=== PATIENT | male | born 1965 | race Caucasian/White ===

== ENCOUNTER → 2017-04-11 | Outpatient (CLI) | payer MEDICARE | LOC: MHCPAIN 10:41 | DX: G89.29 Other chronic pain (principal); M96.1 Postlaminectomy syndrome, not elsewhere classified; S24.109A Unspecified injury at unspecified level of thoracic spinal cord, initial encounter; R25.2 Cramp and spasm | CPT/HCPCS: G0463 ==

== ENCOUNTER 2019-03-12 13:08 | Outpatient (RCR) | payer MEDICARE | END 2019-03-29 16:52 | disposition home or self-care (01) | LOC: MKS.ESL.OT 13:08 | DX: G82.20 Paraplegia, unspecified (principal); G95.9 Disease of spinal cord, unspecified ==

== ENCOUNTER → 2019-04-13 | Outpatient (CLI) | payer MEDICARE | LOC: COL.RAD 14:00 | DX: N31.2 Flaccid neuropathic bladder, not elsewhere classified (principal); N13.30 Unspecified hydronephrosis ==

== ENCOUNTER 2020-02-28 17:44 | Emergency (ER) | payer MEDICARE ==
[~2020-02-28] VITALS: Ht 182.9 cm; Wt 63.6 kg
[~2020-02-28 17:44] MED LIST: AFRIN 15 ML15 ML NS; DULCOLAX STOOL100 MG PO; REGLAN 10MG/11 MG/ML PEG; REGLAN 10MG/11 MG/ML PO; SANTYL30 TP; TYLENOL 325MG325 MG PO; VALIUM 5MG T5 MG/TAB PO; ZILRETTA32 MG; ZOFRAN 4MG T4 MG/TAB PO; ZOLOFT 100MG100 MG PO
[2020-02-28 18:43] LABS: HEMATOCRIT 39.7 % (42.0-52.0); HEMOGLOBIN 12.3 g/dl (13.5-18.0); MEAN CELL VOLUME 84 fl (80.0-100.0); MEAN CORPUSCULAR HEMOGLOBIN 26 pg (27.0-31.0); MEAN CORPUSCULAR HGB CONC 31 g/dl (33.0-37.0); MEAN PLATELET VOLUME 10.3 fl (7.4-10.4); PLATELET COUNT 899 K/mm3 (130-400); RED BLOOD COUNT 4.74 M/mm3 (4.20-5.60); REDCELL DISTRIBUTION WIDTH-CV 14.8 % (11.5-14.5)
[2020-02-28 18:51] LABS: ALBUMIN 4.2 gm/dL (3.5-5.0); ALKALINE PHOSPHATASE 125 U/L (50-136); ANION GAP 16 mmol/L (7-16); AST,SGOT 20 U/L (15-37); BILIRUBIN,TOTAL 0.7 mg/dL (0.0-1.0); BLOOD UREA NITROGEN 35 mg/dL (9-20); C-REACTIVE PROTEIN 8.4 mg/dL (0.0-0.9); CALCIUM 10.7 mg/dL (8.4-10.2); CARBON DIOXIDE 25 mmol/L (22-30); CHLORIDE 97 mmol/L (98-107); CREATININE, serum 0.87 (0.66-1.25); GLUCOSE 277 mg/dL (74-106); LIPASE 19 U/L (23-300); SODIUM 138 mmol/L (137-145); TOTAL PROTEIN 9.2 gm/dL (6.4-8.2)
[2020-02-28 18:55] LABS: ALANINE AMINOTRANSFERASE 23 U/L (4-49)
[2020-02-28 19:10] LABS: TROPONIN-I < 0.012 ng/mL (0.000-0.035)
[2020-02-28 19:39] LABS: COLLECTION METHOD CATHETER
[2020-02-28 19:47] LABS: BAND 5 % (0-10); LYMPHOCYTE 2 % (20.0-51.0); METAMYELOCYTE 0 % (0-0); NEUTROPHILS 87 % (42.0-75.2); PLATELET ESTIMATE INCREASED (NORMAL)
[2020-02-28 19:48] LABS: HYPOCHROMIA 2+
[2020-02-28 19:56] LABS: PH 6 (5-8); SQUAMOUS EPITHELIAL None Seen /hpf; URINE APPEARANCE Clear; URINE BACTERIA None Seen /hpf; URINE BILIRUBIN Negative (NEGATIVE); URINE BLOOD 1+ (NEGATIVE); URINE COLOR Yellow; URINE GLUCOSE Negative (NEGATIVE); URINE KETONE Negative (NEGATIVE); URINE LEUKOCYTE ESTERASE Trace (NEGATIVE); URINE NITRATE Negative (NEGATIVE); URINE PROTEIN(semi-quant) 1+ (NEGATIVE); URINE RBC >50 /hpf; URINE UROBILINOGEN Negative (NEGATIVE)
[2020-02-28 22:34] VITALS: BP 119/81; PULSE 156; TEMP 98.1
== END 2020-02-28 22:32 | disposition short-term general hospital (02) ==
LOC: COL.ER 17:44
PROVIDERS: Emergency Medicine
DX: J18.9 Pneumonia, unspecified organism (principal); A41.9 Sepsis, unspecified organism; R10.0 Acute abdomen
CPT/HCPCS: J0692; J1170; J2405; J3010; J7030; Q9967

== ENCOUNTER 2022-01-22 17:42 | Inpatient (IN) | payer MEDICARE ==
[~2022-01-22] VITALS: Ht 182.9 cm; Wt 64.1 kg
[2022-01-22 18:18] LABS: BASO % 0.3 % (0.0-2.0); EOS # 0.5 K/mm3 (0.0-0.7); EOS % 4.4 % (0.0-4.0); GRAN # 8.6 K/mm3 (1.4-6.5); GRAN % 74.2 % (42.2-75.2); LYMPH # 1.3 K/mm3 (1.2-3.4); LYMPH % 11.2 % (20.0-51.0); MEAN CELL VOLUME 60 fl (80.0-100.0); MEAN CORPUSCULAR HGB CONC 27 g/dl (33.0-37.0); MEAN PLATELET VOLUME 10.3 fl (7.4-10.4); MONO # 1.1 K/mm3 (0.1-0.6); MONO % 9.3 % (1.7-9.3); PLATELET COUNT 822 K/mm3 (130-400); RED BLOOD COUNT 3.57 M/mm3 (4.20-5.60); REDCELL DISTRIBUTION WIDTH-CV 21.3 % (11.5-14.5)
[2022-01-22 18:26] LABS: HEMATOCRIT 21.5 % (42.0-52.0); MEAN CORPUSCULAR HEMOGLOBIN 16 pg (27-31)
[2022-01-22 18:27] LABS: HEMOGLOBIN 5.7 g/dl (13.5-18.0)
[2022-01-22 18:44] LABS: BILIRUBIN,TOTAL 0.6 mg/dL (0.2-1.2); CALCIUM 8.7 mg/dL (8.4-10.2); CREATININE, serum 0.74 mg/dL (0.72-1.25); POTASSIUM 3.5 mmol/L (3.5-4.5); TOTAL PROTEIN 7.1 gm/dL (6.2-8.1)
[2022-01-22 18:59] LABS: COLLECTION METHOD IN
[2022-01-22 19:17] LABS: PH 6 (5-8); SQUAMOUS EPITHELIAL None Seen /hpf (0-10); URINE APPEARANCE Cloudy (CLEAR/HAZY); URINE BACTERIA Rare /hpf (NONE SEEN); URINE BILIRUBIN Negative (NEGATIVE); URINE BLOOD 1+ (NEGATIVE); URINE COLOR Yellow (YELLOW); URINE GLUCOSE Negative (NEGATIVE); URINE KETONE Negative (NEGATIVE); URINE LEUKOCYTE ESTERASE 3+ (NEGATIVE); URINE NITRATE Negative (NEGATIVE); URINE PROTEIN(semi-quant) 1+ (NEGATIVE); URINE UROBILINOGEN Negative (NEGATIVE)
[2022-01-22 21:30] VITALS: BP 128/67; PULSE 67; TEMP 98.9
[2022-01-22] MEDS ORDERED: PROTONIX 40MG T40 MG PO (21:41)
[2022-01-22] MEDS ORDERED: PEPCID40 MG PO (21:41)
[2022-01-22] MEDS ORDERED: ULTRAM 50MG TAB50 MG (21:53)
[2022-01-22] MEDS ORDERED: ZOFRAN 4MG T4 MG/TAB (21:54)
[2022-01-22 21:59] VITALS: BP 136/70; PULSE 72; TEMP 98.7
[2022-01-22 22:46] VITALS: BP 129/66; PULSE 72; TEMP 98.8
[2022-01-22 23:15] VITALS: BP 121/66; PULSE 92; TEMP 99
[2022-01-22 23:46] VITALS: BP 116/66; PULSE 105; TEMP 98.9
[2022-01-23] VITALS (20 sets, daily range): BP systolic 90–118; BP diastolic 49–68; PULSE 56–97; TEMP 97.8–98.9
--- NOTE | 2022-01-23 01:39 | NUR ---
Patient arrived from ER to medical unit at approximately 2315. Patient had blood running, straight tubing from ER. Completed blood at approximately 0015. Order placed to recheck H&H. Patient is alert and oriented, and able to make needs known. Denies pain and discomfort. Peripheral INT to left AC. 1 L fluids given after transfusion completed per orders. Denies SOB and dyspnea. LS CTA. HRR. Telemetry in place. BSA. Colostomy to LLQ. Chronic indwelling catheter in place, with cloudy yellow urine. Changed leg bag to urinary drainage bag. No edema. Called CHRIS Valentine as requested to look at ulcers-one to right hip area with drainage, wound culture obtained. One to left hip area, not open, no drainage. One to left buttock, with drainage, wound culture obtained. New mepilex dressings placed to area. Patient has scarring to bottom from old ulcers. Contractures to BLE and hips. Paraplegic. Waffle overlay mattress applied to bed. Patient voices no questions, needs, or concerns at this time. In bed with call light within reach.
[2022-01-23 01:46] LABS: HEMATOCRIT 22.8 % (42.0-52.0)
[2022-01-23 01:47] LABS: HEMOGLOBIN 6.3 g/dl (13.5-18.0)
--- NOTE | 2022-01-23 05:36 | NUR ---
Patient receiving 2nd unit of blood at this time. BP had been low, 90s/50s. Updated CHRIS Valentine. Order to start IV fluids when blood is complete. Patient denies pain and discomfort. Voices no questions, needs, or concerns at this time. In bed with call light within reach.
--- NOTE | 2022-01-23 06:22 | NUR ---
Patient completed 2nd unit of blood. Order placed to recheck around 0700, and refuse laborer notified. IV fluids started per orders, and given IV Protonix per orders. Dr. Louie notified of consult. Telephone order to put in order set for EGD at 1130. Orders placed. Called and notified Recovery Rn who will get it put on schedule.
[2022-01-23 07:23] LABS: BASO # 0.1 K/mm3 (0.0-0.2); BASO % 0.6 % (0.0-2.0); EOS # 0.7 K/mm3 (0.0-0.7); EOS % 7.5 % (0.0-4.0); GRAN % 70.8 % (42.2-75.2); LYMPH % 10.4 % (20.0-51.0); MEAN CORPUSCULAR HGB CONC 29 g/dl (33.0-37.0); MONO % 9.9 % (1.7-9.3); RED BLOOD COUNT 3.62 M/mm3 (4.20-5.60); REDCELL DISTRIBUTION WIDTH-CV 27.3 % (11.5-14.5)
[2022-01-23 07:31] LABS: HEMATOCRIT 23.8 % (42.0-52.0); MEAN CELL VOLUME 66 fl (80.0-100.0); MEAN CORPUSCULAR HEMOGLOBIN 19 pg (27-31); PLATELET COUNT 668 K/mm3 (130-400)
[2022-01-23 07:48] LABS: CALCIUM 7.9 mg/dL (8.4-10.2); CREATININE, serum 0.65 mg/dL (0.72-1.25); POTASSIUM 3.8 mmol/L (3.5-4.5)
--- NOTE | 2022-01-23 11:12 | NUR ---
Patient laying in bed; alert and oriented, not very talkative. signed consent for EGD/Colonoscopy... Patient has a colostomy and chronic garcia, both are properly maintained. Patient does have multiple ulcers present (left hip [healing], right hip, and left buttock). All wounds are covered w/ a mepilex and are CDI. These ulcers have been being managed by home health according to the patient.
--- NOTE | 2022-01-23 13:20 | NUR ---
Patient arrived back to the floor from EGD and is doing well, currently hooked up for post-op VS. Patient remains A&Ox4, denies any pain, and is ready to eat. Dr. Louie was called for a diet order. This RN was instructed to do a clear liquid diet and advance as tolerated. Patient ate a cup of jello and drank some water, tolerated this well so diet was advanced.
--- NOTE | 2022-01-23 13:46 | NUR ---
Insulation Worker Interior Surface met with patient to discuss discharge planning. Patient lives alone in [place] and sees Dr. Us for primary care. Patient obtains medications from [facility] or [facility]. Patient is paraplegic and uses a wheelchair for ambulation. Patient reports independence with ADLS. Patient reports he receives home health services. When SW asked patient which agency he uses patient questions why SW would ask this. SW advised that updates are sent to the home health agency when patients are admitted. Patient declines to tell SW which agency he uses and states he will update them himself. Patient has Advance Directives in EMR which designate his sister, Ingrid. LEYLA contacted MARY Garsia at Dr. Us's office who advised she believes patient uses [facility]. LEYLA contacted [facility] and faxed clinical updates. Araceli at [facility] advised patient has PT/OT/Nursing but does not get any private duty services through their agency. Araceli advised their agency does not see patient daily. Discharge Plan: Home with [facility]
[2022-01-23] MEDS ORDERED: MULTI VITAMINS1 TAB PO (14:40)
--- NOTE | 2022-01-23 20:59 | NUR ---
Patient assessed around 1930. Alert and oriented, and able to make needs known. Denies pain and discomfort. States he just wants to go home. Explained that the physician wanted to recheck blood levels in the morning and should be able to go home as long as Hemoglobin is 7 or more. Voiced understanding. Denies nausea and upset stomach. Voices no questions, needs, or concerns at this time. In bed with call light within reach.
[2022-01-24 00:02] LABS: HEMATOCRIT 24.9 % (42.0-52.0); HEMOGLOBIN 7.2 g/dl (13.5-18.0)
[2022-01-24 00:18] VITALS: BP 101/54; PULSE 65; TEMP 98.3
[2022-01-24 04:17] VITALS: BP 107/54; PULSE 78; TEMP 98.4
--- NOTE | 2022-01-24 05:50 | NUR ---
Patient has been resting in bed. Received PRN Tramadol twice this shift for generalized pain as requested. HMG recheck around midnight was 7.2. Voices no questions, needs, or concerns at this time. Call light within reach.
[2022-01-24 08:19] VITALS: BP 111/68; PULSE 77; TEMP 98.1
[2022-01-24] MEDS ORDERED: OMNICEF 300MG300 MG PO ×2 (09:19)
[2022-01-24] MEDS ORDERED: FERRO-TIME325 MG PO (09:19)
[2022-01-24] MEDS ORDERED: PROTONIX 40MG T40 MG PO (09:19)
--- NOTE | 2022-01-24 11:19 | NUR ---
Rn Recruitment attended clinical rounds with the team and patient is ready for discharge today. Based on patient's wounds and paraplegia, he will require EMS transport home. LEYLA contacted [facility] and scheduled pick and shovel man time for 1400. LEYLA placed completed EMS forms on chart. LEYLA contacted patient's sister, Ingrid and notified her of discharge. LEYLA contacted [facility] and faxed discharge orders. LEYLA confirmed with patient that he receives daily private duty services from [facility]. Discharge Plan: Home with HH and private duty
[2022-01-24 13:06] VITALS: BP 111/54; PULSE 82; TEMP 98.1
--- NOTE | 2022-01-24 13:19 | NUR ---
Patient has been fairly quiet all day, has not addressed any concerns with this RN. Denies pain whenever asked. Plan at this time is for the patient to discharge home via EMS. Discharge education discussed and patient appeared uninterested.
--- NOTE | 2022-01-24 14:19 | NUR ---
IV and telemetry discontinued by this RN. Report given to EMS.
[2022-01-24] MEDS ORDERED: LEVAQUIN 750MG750 M1 PO (14:25)
== END 2022-01-24 14:15 | disposition home health service (06) | DRG 381 ==
LOC: COL.ER 17:42 → MEDICAL 19:29
PROVIDERS: Internal Medicine Gastroenterology; Nurse Practitioner Family; Physician Assistant; Student in an Organized Health Care Education/Training Program; ADMIT Internal Medicine
PROC: 0DB98ZX Excision of Duodenum, Via Natural or Artificial Opening Endoscopic, Diagnostic (ICD-10-PCS; principal; 2022-01-23 11:15)
DX: K22.11 Ulcer of esophagus with bleeding (principal); D62 Acute posthemorrhagic anemia; G82.20 Paraplegia, unspecified; N39.0 Urinary tract infection, site not specified; J44.9 Chronic obstructive pulmonary disease, unspecified; G47.33 Obstructive sleep apnea (adult) (pediatric); D75.839 Thrombocytosis, unspecified; L89.159 Pressure ulcer of sacral region, unspecified stage; B96.89 Other specified bacterial agents as the cause of diseases classified elsewhere; B96.5 Pseudomonas (aeruginosa) (mallei) (pseudomallei) as the cause of diseases classified elsewhere
CPT/HCPCS: 99223-AI; 99233-AI; 99239; C9113; J0696; J1756; J2405; J2704; J7030; P9016

== ENCOUNTER 2022-06-17 21:13 | Inpatient (IN) | payer MEDICARE ==
[~2022-06-17] VITALS: Ht 182.9 cm; Wt 61.0 kg
[~2022-06-17 21:13] MED LIST changes: +FERRO-TIME325 MG PO; +LEVAQUIN 750MG750 M1 PO; +MULTI VITAMINS1 TAB PO; +OMNICEF 300MG300 MG PO; +PEPCID40 MG PO; +PROTONIX 40MG T40 MG PO; +ULTRAM 50MG TAB50 MG; +ZOFRAN 4MG T4 MG/TAB
[2022-06-17 22:22] LABS: MEAN CELL VOLUME 62 fl (80.0-100.0); MEAN CORPUSCULAR HGB CONC 29 g/dl (33.0-37.0); MEAN PLATELET VOLUME 9.2 fl (7.4-10.4); PLATELET COUNT 664 K/mm3 (130-400); RED BLOOD COUNT 4.23 M/mm3 (4.20-5.60); REDCELL DISTRIBUTION WIDTH-CV 20.8 % (11.5-14.5)
[2022-06-17 22:26] LABS: HEMATOCRIT 26.1 % (42.0-52.0); HEMOGLOBIN 7.5 g/dl (13.5-18.0); MEAN CORPUSCULAR HEMOGLOBIN 18 pg (27-31)
[2022-06-17 22:42] LABS: BILIRUBIN,TOTAL 0.3 mg/dL (0.2-1.2); C-REACTIVE PROTEIN 9.96 mg/dL (0.00-0.50); CALCIUM 8.6 mg/dL (8.4-10.2); CREATININE, serum 0.63 mg/dL (0.72-1.25); POTASSIUM 4.1 mmol/L (3.5-4.5); TOTAL PROTEIN 7.3 gm/dL (6.2-8.1)
[2022-06-17 22:45] LABS: ERYTHROCYTE SEDIMENTATION RATE 65 mm/hr (0-30)
[2022-06-17 22:49] LABS: BAND 5 % (0-10); EOSINOPHIL 8 % (0-4); LYMPHOCYTE 7 % (20.0-51.0); NEUTROPHILS 71 % (42.0-75.2)
[2022-06-17 22:50] LABS: ANISOCYTOSIS 2+; HYPOCHROMIA 2+; PLATELET ESTIMATE INCREASED (NORMAL)
[2022-06-18] VITALS (15 sets, daily range): BP systolic 96–118; BP diastolic 52–65; PULSE 88–133; TEMP 98.4–102.2
--- NOTE | 2022-06-18 03:06 | NUR ---
Vancomycin Initial Dosing Pharmacy Note Ordering provider: Phill Wilkins MD Indication/duration: Acute on chronic ulcers x 7 days. Relevant comorbidities: Paraplegia LABS: WBC = 11.0, SCr = 0.63 Recommendation: Will draw troughs and follow levels. Loading dose: 1 gram Maintenance dose: 1 gram every 12 hours Trough goal: 10-15 ug/mL
[2022-06-18 03:19] LABS: MUCOUS Present (NOT PRESENT); SQUAMOUS EPITHELIAL 0-2 /hpf (0-10); URINE BACTERIA Many /hpf (NONE SEEN); URINE RBC >50 /hpf (0-2)
[2022-06-18 03:29] LABS: COLLECTION METHOD IN; URINE APPEARANCE Cloudy (CLEAR/HAZY); URINE COLOR Yellow (YELLOW)
[2022-06-18 03:30] LABS: PH 7 (5-8); URINE BLOOD 3+ (NEGATIVE); URINE GLUCOSE Negative (NEGATIVE); URINE KETONE Negative (NEGATIVE); URINE NITRATE Negative (NEGATIVE); URINE PROTEIN(semi-quant) 1+ (NEGATIVE); URINE UROBILINOGEN Negative (NEGATIVE)
[2022-06-18 06:47] LABS: MEAN CELL VOLUME 64 fl (80.0-100.0); MEAN CORPUSCULAR HGB CONC 28 g/dl (33.0-37.0); MEAN PLATELET VOLUME 10.2 fl (7.4-10.4); PLATELET COUNT 623 K/mm3 (130-400); RED BLOOD COUNT 3.67 M/mm3 (4.20-5.60); REDCELL DISTRIBUTION WIDTH-CV 20.4 % (11.5-14.5)
[2022-06-18 06:54] LABS: HEMATOCRIT 23.3 % (42.0-52.0); HEMOGLOBIN 6.6 g/dl (13.5-18.0); MEAN CORPUSCULAR HEMOGLOBIN 18 pg (27-31)
[2022-06-18 07:00] LABS: CALCIUM 8.1 mg/dL (8.4-10.2); CREATININE, serum 0.64 mg/dL (0.72-1.25); MAGNESIUM 1.4 mg/dL (1.6-2.6); POTASSIUM 4.2 mmol/L (3.5-4.5)
[2022-06-18 07:18] LABS: BAND 20 % (0-10); EOSINOPHIL 2 % (0-4); LYMPHOCYTE 5 % (20.0-51.0); NEUTROPHILS 69 % (42.0-75.2)
[2022-06-18 07:19] LABS: ANISOCYTOSIS 3+; HYPOCHROMIA 3+; MICROCYTOSIS 2+; OVALOCYTES 1+
[2022-06-18 07:20] LABS: TEAR DROP CELLS 1+
[2022-06-18 07:21] LABS: PLATELET ESTIMATE INCREASED (NORMAL); POIKILOCYTOSIS 1+
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
--- NOTE | 2022-06-18 11:00 | NUR ---
AIVS AT BEDSIDE TO PLACE PICC
--- NOTE | 2022-06-18 11:48 | NUR ---
Met with patient at bedside. He is very withdrawn and didn't make eye contact throughout our conversation. He was able to explain his condition and possible treatment plan pending a CT scan of his hip. He states that he has been told he probably can't go home but would really like to try. I encouraged him to talk with the care team about his options and he agreed to talk with me again after he has more tests. Primary nurse and SW updated as well.
--- NOTE | 2022-06-18 13:00 | NUR ---
STARTING UNIT OF PRBC PER ORDERS AFTER RIGHT UPPER ARM PICC PLACEMENT. VSS. PATIENT C/O PAIN AND NAUSEA. GAVE PRN ZOFRAN AND THEN GAVE PRN OXYCODONE PER PATIENT REQUEST. WILL MONITOR. PATIENT'S SISTER WAS AT BEDSIDE BUT IS NOW LEAVING. PATIENT RESTING IN ROOM WITH LIGHTS TURNED DOWN.
--- NOTE | 2022-06-18 15:35 | NUR ---
PATIENT STILL C/O NAUSEA, NOTED EMESIS X2 EVEN AFTER IV ZOFRAN. GAVE PRN IV PHENERGAN PER ORDERS. PATIENT TOLERATED BLOOD TRANSFUSION WELL. VSS. PATIENT RESTING UP IN BED WITH CALL LIGHT IN REACH.
--- NOTE | 2022-06-18 15:53 | NUR ---
Casandra, palliative care RN, met with the patient. The patient would really like to try and go home, but understands that his care team does not feel like he can. SW asked the PA for PT/OT to be ordered.
--- NOTE | 2022-06-18 16:18 | NUR ---
PATIENT GOING DOWN TO CT VIA BED.
--- NOTE | 2022-06-18 17:25 | NUR ---
PATIENT'S LEFT DECUB ULCER COMPLETELY SATURATED AGAIN. CHANGED BED LINENS, CHUCKS-PAD, AND APPLIED NEW LEFT HIP DECUB ULCER DRESSING WITH 4X4'S, ABD & HYPAFIX. BONE IS CLEARLY PRESENT WITH COPIOUS AMOUNTS OF PURULENT DRAINAGE NOTED AND FOUL ODOR. CT SCAN SHOWS OSTEO AND SEPTIC JOINT, SEE REPORT.
[2022-06-18 17:46] LABS: HEMATOCRIT 27.1 % (42.0-52.0); HEMOGLOBIN 7.9 g/dl (13.5-18.0)
--- NOTE | 2022-06-18 21:58 | NUR ---
UPON ASSESSMENT, PT STATES PAIN 9/10 AND EXPERIENCING MID-STERNAL CHEST TIGHTNESS. PT ACTIVELY VOMITING DARK BROWN/ RED LIQUID DESPITE PHENERGAN AND ZOFRAN ADMINISTRATION. RECENT FEVER TREATED WITH TYLENOL SUPPOSITORY, BLOOD CX PENDING FROM AM. PT RECEIVING FLUIDS, ABX. COLOSTOMY EMPTIED AND SILVA OBSERVED TO HAVE YELLOW URINE WITH SEDIMENT AND MUCUS-TYPE FLUID. BLE CONTRACTED AND DRESSINGS INTACT AND DRY AT THIS TIME. ALDO PEREZ NOTIFIED REGARDING CHEST DISCOMFORT AND STATUS, ORDERS PLACED FOR CHEST XR, EKG, LR BOLUS, PROTONIX AND NPO. WILL CONTINUE TO MONITOR CLOSELY.
[2022-06-19] VITALS (11 sets, daily range): BP systolic 96–112; BP diastolic 51–64; PULSE 63–82; TEMP 97.9–99.1
--- NOTE | 2022-06-19 01:48 | NUR ---
WOUND CARE PERFORMED ON ALL WOUNDS NOTED ON PT. L HIP RINSED AND DRESSED, FOLLOWED BY BILAT HEELS, BILAT SHINS, COCCYX AND R HIP. SILVA CARE AND BATH WIPE CLEANSING PERFORMED AT THIS TIME WELL. SILVA CATHETER SECUREMENT DEVICE APPLIED TO R UPPER THIGH.
--- NOTE | 2022-06-19 05:21 | NUR ---
PT REQUESTS DILAUDID AT THIS TIME, HOWEVER BP SLIGHTLY HYPOTENSIVE AND PT DROWSY AND ONLY AWAKENS TO VERBAL STIMULI. PT MARKEDLY MORE LETHARGIC COMPARED TO START OF SHIFT, THEREFORE PT EDUCATED ON REASONING BEHIND NOT ADMINISTERING DILAUDID AT THIS TIME. OTHER VSS AND WILL CONTINUE TO MONITOR CLOSELY. RESPIRATORY RATE 18 AT THIS TIME.
[2022-06-19 06:35] LABS: MEAN CELL VOLUME 65 fl (80.0-100.0); MEAN CORPUSCULAR HGB CONC 29 g/dl (33.0-37.0); MEAN PLATELET VOLUME 10.5 fl (7.4-10.4); RED BLOOD COUNT 3.53 M/mm3 (4.20-5.60); REDCELL DISTRIBUTION WIDTH-CV 23.6 % (11.5-14.5)
[2022-06-19 06:39] LABS: CALCIUM 7.1 mg/dL (8.4-10.2); CREATININE, serum 0.57 mg/dL (0.72-1.25); POTASSIUM 3.4 mmol/L (3.5-4.5)
[2022-06-19 07:09] LABS: HEMATOCRIT 23.1 % (42.0-52.0); HEMOGLOBIN 6.7 g/dl (13.5-18.0); MEAN CORPUSCULAR HEMOGLOBIN 19 pg (27-31); PLATELET COUNT 483 K/mm3 (130-400)
--- NOTE | 2022-06-19 08:00 | NUR ---
PATIENT IS ORIENTED BUT VERY DROWSY AND HAS FLAT AFFECT. PATIENT IS A PARAPLEGIC AND IS CONTRACTED INTO THE POSITION. COMPLETELY BED BOUND, TOTAL CARES. PATIENT HAS CHRONIC SILVA WITH HEMATURIA. PATIENT HAS EXTENSIVE DECUB ULCERS, SEE SHIFT ASSESSMENT. ORTHO CONSULTED FOR OSTEOMYLITIS/SEPTIC JOINT/DISLOCATED HIP JOINTS BILATERALLY. IV FLUIDS INFUSING INTO LEFT FORARM IV VIA PICC. PATIENT REQUIRING FREQUENT DRESSING CHANGED DUE TO ULCER DRAINAGE, REPOSITIONING, HEEL PROTECTORS TO BLE, AIR MATRESS, AND PILLOWS TO HELP REDUCE PRESSURE AREAS. SPECIAL PRESSURE BED ORDERED AND SHOULD BE DELIVERED TODAY. NOTED SOFT PRESSURES IN THE 90'S SYSTOLIC, ALL OTHER VSS ON TELE. COLOSTOMY WITH MOD AMOUNTS OF LOOSE STOOL. REFUSING SCD'S. AM HGB OF 6.7, SEE ORDERS FOR BLOOD TRANSFUSION TODAY AND POTASSIUM REPLACEMENT. IV ABX THERAPY. HEAD TO TOE ASSESSMENT COMPLETE. AM MEDS GIVEN. PATIENT TIRED AND RESTING UP IN BED WITH LIGHTS TURNED DOWN. CALL LIGHT IN REACH. BED ALARM ON.
[2022-06-19 08:14] LABS: BAND 14 % (0-10); EOSINOPHIL 4 % (0-4); LYMPHOCYTE 6 % (20.0-51.0); NEUTROPHILS 71 % (42.0-75.2); NUCLEATED RED BLOOD CELL 1 (0-6)
[2022-06-19 08:16] LABS: ANISOCYTOSIS 2+; OVALOCYTES 2+; SCHISTOCYTES 2+; TEAR DROP CELLS 1+
[2022-06-19 08:17] LABS: MICROCYTOSIS 2+; PLATELET ESTIMATE INCREASED (NORMAL)
--- NOTE | 2022-06-19 13:29 | NUR ---
LEYLA staffed with the hospitalist. Ortho has been consulted and the team is awaiting their recommendation and plans for the patient's osteomyelitis. LEYLA proposed the option of LTACH at [facility] with the patient's extensive wounds. The hospitalist is supportive of this option. Will await Ortho's recs. LEYLA contacted and faxed a referral to Torsten at [facility].
--- NOTE | 2022-06-19 14:05 | NUR ---
Met with patient and his sister at bedside. Discussed the current treatment plan and offered to answer questions. Described the various rehab options that may be available but encouraged patient and family to focus on the problem at hand; the osteomyelitis and talking about options with the orthopedist.
--- NOTE | 2022-06-19 16:17 | NUR ---
STARTED UNIT OF PRBC PER ORDERS. ORTHO NOW AT BEDSIDE, SEE CONSULT.
--- NOTE | 2022-06-19 18:40 | NUR ---
REPORT GIVEN TO MARY RODRIGUEZ. BLOOD TRANSFUSION NEARLY COMPLETE. CREPING MACHINE OPERATOR HELPER TAKING OVER CARE.
[2022-06-20] VITALS: BP 106/60; PULSE 78; TEMP 98.3
[2022-06-20 03:19] VITALS: BP 100/50; PULSE 86; TEMP 98.8
[2022-06-20 08:07] VITALS: BP 97/58; PULSE 83; TEMP 97.9
[2022-06-20 08:25] LABS: MEAN CELL VOLUME 68 fl (80.0-100.0); MEAN CORPUSCULAR HGB CONC 29 g/dl (33.0-37.0); PLATELET COUNT 516 K/mm3 (130-400); RED BLOOD COUNT 4.43 M/mm3 (4.20-5.60); REDCELL DISTRIBUTION WIDTH-CV 25.9 % (11.5-14.5)
[2022-06-20 08:26] LABS: HEMATOCRIT 29.9 % (42.0-52.0); HEMOGLOBIN 8.8 g/dl (13.5-18.0); MEAN CORPUSCULAR HEMOGLOBIN 20 pg (27-31)
[2022-06-20 08:38] LABS: CALCIUM 8.2 mg/dL (8.4-10.2); CREATININE, serum 0.71 mg/dL (0.72-1.25); POTASSIUM 3.9 mmol/L (3.5-4.5)
[2022-06-20 09:09] LABS: ANISOCYTOSIS 3+; BAND 13 % (0-10); BASOPHIL 1 % (0-2); EOSINOPHIL 10 % (0-4); HYPOCHROMIA 2+; LYMPHOCYTE 8 % (20.0-51.0); MICROCYTOSIS 1+; NEUTROPHILS 63 % (42.0-75.2); OVALOCYTES 2+; SCHISTOCYTES 1+; TEAR DROP CELLS 1+
[2022-06-20 09:10] LABS: PLATELET ESTIMATE INCREASED (NORMAL)
[2022-06-20 11:55] VITALS: BP 107/64; PULSE 81; TEMP 98.4
--- NOTE | 2022-06-20 12:57 | NUR ---
Ortho is recommending transfer to a tertiary care center. [facility] called for transfer and they are currently at capacity. Tentative transfer to [facility], once bed available. LEYLA updated Torsten at [facility].
--- NOTE | 2022-06-20 14:00 | NUR ---
ALL DRESSINGS CHANGED.
--- NOTE | 2022-06-20 15:21 | NUR ---
DR SEAMAN AGREED TO HAVE WOUND CARE MANAGEMENT ASSOCIATEARAVIND CONSULTED ON PATIENTS. INFORMATION PASSED ON TO [place], WHOM WILL REACH OUT TO ARAVIND.
[2022-06-20 16:06] VITALS: BP 114/79; PULSE 84; TEMP 98.4
[2022-06-20 20:01] VITALS: BP 99/56; PULSE 75; TEMP 99.1
[2022-06-21 00:35] VITALS: BP 99/52; PULSE 74; TEMP 98.7
[2022-06-21 04:39] VITALS: BP 99/61; PULSE 75; TEMP 97.5
[2022-06-21 06:15] LABS: MEAN CELL VOLUME 67 fl (80.0-100.0); MEAN CORPUSCULAR HGB CONC 30 g/dl (33.0-37.0); MEAN PLATELET VOLUME 9.8 fl (7.4-10.4); PLATELET COUNT 465 K/mm3 (130-400); RED BLOOD COUNT 4.51 M/mm3 (4.20-5.60); REDCELL DISTRIBUTION WIDTH-CV 26.4 % (11.5-14.5)
[2022-06-21 06:20] LABS: HEMATOCRIT 30.3 % (42.0-52.0); MEAN CORPUSCULAR HEMOGLOBIN 20 pg (27-31)
[2022-06-21 06:33] LABS: CALCIUM 8.3 mg/dL (8.4-10.2); CREATININE, serum 0.71 mg/dL (0.72-1.25); POTASSIUM 3.8 mmol/L (3.5-4.5)
[2022-06-21 07:08] LABS: BAND 7 % (0-10); EOSINOPHIL 8 % (0-4); LYMPHOCYTE 5 % (20.0-51.0); NEUTROPHILS 74 % (42.0-75.2)
[2022-06-21 07:09] LABS: ANISOCYTOSIS 3+; HYPOCHROMIA 2+; PLATELET ESTIMATE INCREASED (NORMAL)
[2022-06-21 07:41] VITALS: BP 108/62; PULSE 69; TEMP 97.5
--- NOTE | 2022-06-21 09:15 | NUR ---
Pt. sitting up in bed. Pt. is A&OX3, assessment complete. Dressings to bilateral hips CDI at this time. Bilateral heel dressing CDI. Olsen catheter to DD, tatiana urine noted. Colostomy noted. Pt.'s linen changed and dajuan care provided. Pt. repositioned for comfort. Pt. denies further needs. Call light within reach.
[2022-06-21 12:49] VITALS: BP 105/62; PULSE 91; TEMP 98.3
[2022-06-21 16:22] VITALS: BP 112/69; PULSE 91; TEMP 98.4
--- NOTE | 2022-06-21 20:05 | NUR ---
BEGINNING OF SHIFT: PATIENT RESTING QUIETLY IN BED. PATIENT HAVING C/O NAUSEA PATIENT GIVEN PRN ZOFRAN. PAITENT DENIES OTHER NEEDS
[2022-06-22 01:30] VITALS: BP 109/66; PULSE 77; TEMP 98.7
[2022-06-22 04:00] VITALS: BP 117/72; PULSE 84; TEMP 98.6
--- NOTE | 2022-06-22 06:05 | NUR ---
END OF SHIFT: PATIENT RESTED QUIETLY THIS SHIFT. PATIENT RELUCTANT TO TURN EVERY 2 HOURS. PATIENT RECEIVED PRN ROXICODONE ONCE THIS SHIFT. PATIENT REPORTED SOME RELIEF FROM ZOFRAN GIVEN EARLIER IN SHIFT.
[2022-06-22 08:07] VITALS: BP 108/66; PULSE 74; TEMP 98.5
[2022-06-22 12:58] VITALS: BP 112/76; PULSE 86; TEMP 98.3
--- NOTE | 2022-06-22 13:30 | NUR ---
Transfer center at [facility] calls this RN to notify that a bed is available for this patient. Receiving provider is Dr. Lynn. [facility] is notified of transfer at this time. Pt is cooperative and agreeable to transfer and acknowledges understanding of transfer. Pt going to room [facility]
--- NOTE | 2022-06-22 14:10 | NUR ---
Chon with [facility] transfer ogden notified that EMS is currently here to provide transportation to their facility. Chon acknowledges understanding.
--- NOTE | 2022-06-22 14:39 | NUR ---
1430 - REPORT GIVEN TO MICA HERNANDEZ. PATIENT SAFELY TRANSPORTED TO [facility] STRET[facility]ER VIA STAFF FOR TRANSFER. PAPERWORK SENT WITH [facility].
== END 2022-06-22 14:42 | disposition short-term general hospital (02) | DRG 871 ==
LOC: COL.ER 21:13 → SURG 23:54
PROVIDERS: Personal Emergency Response Attendant; Physician Assistant; Student in an Organized Health Care Education/Training Program; ADMIT Student in an Organized Health Care Education/Training Program
PROC: 02HV33Z Insertion of Infusion Device into Superior Vena Cava, Percutaneous Approach (ICD-10-PCS; principal; 2022-06-18)
DX: A41.9 Sepsis, unspecified organism (principal); L89.214 Pressure ulcer of right hip, stage 4; L89.614 Pressure ulcer of right heel, stage 4; L89.893 Pressure ulcer of other site, stage 3; L89.224 Pressure ulcer of left hip, stage 4; T83.83XA Hemorrhage due to genitourinary prosthetic devices, implants and grafts, initial encounter; G82.20 Paraplegia, unspecified; K22.10 Ulcer of esophagus without bleeding; N39.0 Urinary tract infection, site not specified; M86.8X8 Other osteomyelitis, other site; R31.0 Gross hematuria; D64.9 Anemia, unspecified; J44.9 Chronic obstructive pulmonary disease, unspecified; L89.620 Pressure ulcer of left heel, unstageable; G47.33 Obstructive sleep apnea (adult) (pediatric); D75.839 Thrombocytosis, unspecified; G89.29 Other chronic pain; L89.159 Pressure ulcer of sacral region, unspecified stage; B96.5 Pseudomonas (aeruginosa) (mallei) (pseudomallei) as the cause of diseases classified elsewhere; B95.4 Other streptococcus as the cause of diseases classified elsewhere; M24.451 Recurrent dislocation, right hip; Y84.6 Urinary catheterization as the cause of abnormal reaction of the patient, or of later complication, without mention of misadventure at the time of the procedure; R11.2 Nausea with vomiting, unspecified; B96.4 Proteus (mirabilis) (morganii) as the cause of diseases classified elsewhere; R73.9 Hyperglycemia, unspecified; Z88.0 Allergy status to penicillin; Z87.19 Personal history of other diseases of the digestive system; Z88.2 Allergy status to sulfonamides
CPT/HCPCS: C1751; C9113; J1170; J1956; J2270; J2405; J2543; J2550; J3370; J3475; J3480; J7030; J7050; J7120; P9016